=== PATIENT | male | born 1985 | race Caucasian/White ===

== ENCOUNTER → 2021-06-12 | Outpatient (CLI) | payer OTHER ==
--- NOTE | 2021-06-12 15:33 | Diagnostic Imaging Report ---
EXAM: LUMBAR SPINE - 2-3 VIEWS INDICATION: Low back pain. Leg numbness. COMPARISON: None. FINDINGS: Normal alignment. Vertebral body heights preserved. No fractures. Mild scattered degenerative endplate changes. Visualized pelvis is intact. Radiopaque densities overlying the renal shadows consistent with renal stones. IMPRESSION: 1. Mild spondylotic changes in the lumbar spine. No acute radiographic findings. 2. Densities overlying the renal shadows bilaterally consistent with nephrolithiasis. Dictated by: Dictated on workstation # [id number]
== END ==
LOC: RAD 15:00
PROVIDERS: ATTEND Family Medicine
DX: M47.26 Other spondylosis with radiculopathy, lumbar region (principal); N20.0 Calculus of kidney
CPT/HCPCS: 72100

== ENCOUNTER 2022-05-08 06:09 | Emergency (ER) | payer OTHER ==
[~2022-05-08] VITALS: Ht 175.3 cm; Wt 104.3 kg
[2022-05-08] MEDS ORDERED: NS IV 1000 ML 1,000 ML IV STA (06:27)
[2022-05-08] MEDS ORDERED: fentaNYL INJ 100 MCG/2 ML AMP IVP STA (06:27)
[2022-05-08] MEDS ORDERED: KETOROLAC 30 MG/ML VIAL IVP STA (06:27)
[2022-05-08 06:35] LABS: BILIRUBIN,URINE NEGATIVE (NEGATIVE); CLARITY,URINE CLEAR; COLOR,URINE YELLOW; GLUCOSE, URINE (UA) NEGATIVE (NEGATIVE); KETONES,URINE NEGATIVE (NEGATIVE); LEUKOCYTE ESTERASE ,URINE NEGATIVE (NEGATIVE); NITRITE,URINE NEGATIVE (NEGATIVE); PROTEIN,URINE 1+ (NEGATIVE)
--- NOTE | 2022-05-08 06:36 | ED GU-Male ---
General Chief Complaint: Abdominal/GI Problems Stated Complaint: RT SIDE KIDNEY STONE Source: patient Exam Limitations: no limitations History of Present Illness Date Seen by Provider: May 08, 2022 Time Seen by Provider: 06:17 Initial Comments Here with complaint of right flank pain that has been going on since last . He has had some blood in his urine. He passed a small stone yesterday. Does have history of kidney stones and has passed multiple stones in the past. He follows with Dr. Krishnan for primary care and does not have a urologist. Takes lisinopril for high blood pressure but otherwise is not on any medicine. He did take ibuprofen 400 mg at 2 AM this morning for pain. States he has not slept all last night due to the pain. States he has not been able to urinate much since yesterday. Denies fever or chills. Denies nausea or vomiting. Timing/Duration: week, getting worse Severity/Quality: moderate, severe, aching Location: right flank Radiation: none Activities at Onset: none Modifying Factors: Improves With Other (No aggravating or relieving factors) Associated Symptoms: No fever/chills Allergies and Home Medications Allergies Coded Allergies: No Known Drug Allergies (Unverified , 05/08/22) Patient Home Medication List Home Medication List Reviewed: Yes Cephalexin (Cephalexin) 500 Mg Capsule, 500 MG PO BID Prescribed by: MARCELA DORMAN on 05/08/22 0758 Hydrocodone/Acetaminophen (Hydrocodone-Acetamin 5-325 mg) 5 Mg-325 Mg Tablet, 1 TAB PO Q6H PRN for PAIN-MODERATE (5-7) Prescribed by: MARCELA DORMAN on 05/08/22 0759 Tamsulosin HCl (Flomax) 0.4 Mg Cap, 0.4 MG PO DAILY Prescribed by: MARCELA DORMAN on 05/08/22 0758 Review of Systems Review of Systems Constitutional: No chills, No fever EENTM: no symptoms reported Respiratory: No cough, No short of breath Gastrointestinal: No nausea, No vomiting Genitourinary: flank pain, hematuria Musculoskeletal: no symptoms reported Skin: no symptoms reported Past Oowoinn-Pqxjiu-Qgjdur Hx Patient Social History Tobacco Use?: No Use of E-Cig and/or Vaping dev: No Substance use?: No Past Medical History Surgeries: No Respiratory: No Cardiac: Yes Hypertension Genitourinary: Yes Kidney Stones Psychosocial: No Family Medical History Reviewed Nursing Family Hx No Pertinent Family Hx Physical Exam Vital Signs Vital Signs - First Documented 05/08/22 06:19 Temp 37.1 Pulse 71 Resp 20 B/P (MAP) 148/119 (129) Pulse Ox 98 O2 Delivery Room Air Capillary Refill : Height, Weight, BMI Height: '" Weight: lbs. oz. kg; BMI Method: General Appearance: WD/WN, mild distress HEENT: PERRL/EOMI, pharynx normal Neck: full range of motion, supple Cardiovascular: regular rate, rhythm, no murmur Gastrointestinal: non tender, soft Back: normal inspection, no CVA tenderness, no vertebral tenderness Extremities: normal range of motion, non-tender Neurologic/Psychiatric: alert, oriented x 3 Skin: normal color, warm/dry Progress/Results/Core Measures Suspected Sepsis SIRS Temperature: Pulse: Respiratory Rate: Laboratory Tests 05/08/22 06:33: White Blood Count 12.3H Blood Pressure / Mean: Laboratory Tests 05/08/22 06:33: Creatinine 1.44H, Platelet Count 252, Total Bilirubin 0.7 Results/Orders Lab Results Laboratory Tests Test 05/08/22 06:28 05/08/22 06:33 Range/Units Urine Color YELLOW Urine Clarity CLEAR Urine pH 6.0 5-9 Urine Specific [place] >=1.030 1.016-1.022 Urine Protein 1+ H NEGATIVE Urine Glucose (UA) NEGATIVE NEGATIVE Urine Ketones NEGATIVE NEGATIVE Urine Nitrite NEGATIVE NEGATIVE Urine Bilirubin NEGATIVE NEGATIVE Urine Urobilinogen 0.2 < = 1.0 MG/DL Urine Leukocyte Esterase NEGATIVE NEGATIVE Urine RBC (Auto) 3+ H NEGATIVE Urine RBC >100 H /HPF Urine WBC NONE /HPF Urine Squamous Epithelial Cells 0-2 /HPF Urine Crystals PRESENT H /LPF Urine Calcium Oxalate Crystals FEW H /LPF Urine Bacteria NEGATIVE /HPF Urine Casts NONE /LPF Urine Mucus SMALL H /LPF Urine Culture Indicated NO White Blood Count 12.3 H 4.3-11.0 10^3/uL Red Blood Count 5.20 4.30-5.52 10^6/uL Hemoglobin 16.2 13.3-17.7 g/dL Hematocrit 45 40-54 % Mean Corpuscular Volume 86 80-99 fL Mean Corpuscular Hemoglobin 31 25-34 pg Mean Corpuscular Hemoglobin Concent 36 32-36 g/dL Red Cell Distribution Width 12.6 10.0-14.5 % Platelet Count 252 130-400 10^3/uL Mean Platelet Volume 9.7 9.0-12.2 fL Immature Granulocyte % (Auto) 0 % Neutrophils (%) (Auto) 78 H 42-75 % Lymphocytes (%) (Auto) 15 12-44 % Monocytes (%) (Auto) 5 0-12 % Eosinophils (%) (Auto) 1 0-10 % Basophils (%) (Auto) 1 0-10 % Neutrophils # (Auto) 9.6 H 1.8-7.8 10^3/uL Lymphocytes # (Auto) 1.9 1.0-4.0 10^3/uL Monocytes # (Auto) 0.7 0.0-1.0 10^3/uL Eosinophils # (Auto) 0.1 0.0-0.3 10^3/uL Basophils # (Auto) 0.1 0.0-0.1 10^3/uL Immature Granulocyte # (Auto) 0.0 0.0-0.1 10^3/uL Sodium Level 139 135-145 MMOL/L Potassium Level 4.2 3.6-5.0 MMOL/L Chloride Level 109 H 98-107 MMOL/L Carbon Dioxide Level 18 L 21-32 MMOL/L Anion Gap 12 5-14 MMOL/L Blood Urea Nitrogen 20 H 7-18 MG/DL Creatinine 1.44 H 0.60-1.30 MG/DL Estimat Glomerular Filtration Rate 64 BUN/Creatinine Ratio 14 Glucose Level 118 H 70-105 MG/DL Calcium Level 9.7 8.5-10.1 MG/DL Corrected Calcium 8.5-10.1 MG/DL Total Bilirubin 0.7 0.1-1.0 MG/DL Aspartate Amino Transf (AST/SGOT) 24 5-34 U/L Alanine Aminotransferase (ALT/SGPT) 45 0-55 U/L Alkaline Phosphatase 45 40-136 U/L Total Protein 7.9 6.4-8.2 GM/DL Albumin 4.7 H 3.2-4.5 GM/DL My Orders Orders - MARCELA DORMAN MD Fentanyl Inj (Sublimaze Injection) (05/08/22 06:27) Ketorolac Injection (Toradol Injection) (05/08/22 06:27) Cbc With Automated Diff (05/08/22 06:27) Comprehensive Metabolic Panel (05/08/22 06:27) Ua Culture If Indicated (05/08/22 06:27) Ct Abd/Pelvis Wo(Kidney Stone) (05/08/22 06:27) Ed Iv/Invasive Line Start (05/08/22 06:27) Ns Iv 1000 Ml (Sodium Chloride 0.9%) (05/08/22 06:27) Hydromorphone Injection (Dilaudid Inject (05/08/22 07:45) Medications Given in ED Current Medications Medications Dose Ordered Sig/Anna Route Start Time Stop Time Status Last Admin Dose Admin Hydromorphone HCl 0.5 mg ONCE ONCE IV 05/08/22 07:45 05/08/22 07:46 DC 05/08/22 07:43 0.5 MG Vital Signs/I&O 05/08/22 05/08/22 06:19 08:12 Temp 37.1 Pulse 71 Resp 20 B/P (MAP) 148/119 (129) 133/89 Pulse Ox 98 O2 Delivery Room Air Capillary Refill : Progress Note : Progress Note Seen and evaluated. IV, labs including CBC, CMP and UA ordered. We will initiate normal saline 1 L IV as well as fentanyl 50 mcg IV and Toradol 30 mg IV. I have reviewed x-ray results from lumbar x-ray done in 2021 which did show multiple stones in both kidneys. We will go ahead and proceed with CT abdomen and pelvis due to length of time the patient has had pain this time and history of multiple stones. We do want to evaluate for hydronephrosis and pyelonephritis. Monitor patient. Differential diagnosis includes right renal stone, UTI, renal dysfunction including renal failure, hydronephrosis and pyelonephritis 0724: Patient had improvement in pain after medication and CT is now complete. Labs reviewed and show a white count of 12.3 but otherwise normal CBC. Chemistries show essentially normal electrolytes with elevated serum creatinine at 1.44 and BUN of 20. LFTs are normal. UA does show concentration with specific gravity greater than 1.030 with greater than 100 RBCs but nitrite and leukocyte are negative. CT is complete. I do see right ureteral stone on my interpretation. Also has left stone. Is within the kidney and nonobstructing. Pending radiology review. 0740: Radiology report is listed below. Pain has returned. Dilaudid 0.5 mg IV ordered. I did speak at length with the patient regarding current findings and stone. He states he has passed a stone similar size previously and really wants to try to do this on his own without hospi talization or transfer. We did talk about different-urologist in the area as there is none associated with this hospital currently. He is considering Dr. Phan in [place]. We did discuss risk and benefits of trying this at home versus transfer to facility with urology. He verbalized understanding of the risk that this may get worse and may not pass. He does have some slight renal dysfunction I think is associated with dehydration. We have given a liter of fluid and he is able to drink fluids. at bedside and discussion included both he and his . is obviously concerned but will defer to 's decision. 0753: Patient does not want transfer. He still would like to try this outpatient. CT results reviewed and reviewed with patient and family. We again discussed risk and benefit. They will call Dr. Phan's office now for appointment. I will initiate outpatient cephalexin, hydrocodone and tamsulosin. Discharged home with return precautions. Patient and family verbalized understanding of instructions and agreement with plan. I will send a copy of the note to Dr. Krishnan's office in case patient needs referral from primary care. We will also fax a copy of the note and send CT via cloud to [facility]. Diagnostic Imaging Diagonstic Imaging: CT Plain Films/CT/US/NM/MRI: abdomen, pelvis Comments [facility], [place] NAME: JORDAN LINDSEY [facility] REC#: [id number] PT STATUS: REG ER : 1985 PHYSICIAN: MARCELA DORMAN MD ADMIT DATE: 05/08/22/ER Draft Date of Exam:05/08/22 CT ABD/PELVIS WO(KIDNEY STONE) PROCEDURE: CT urinary tract, rule out kidney stone. TECHNIQUE: Multiple contiguous axial images were obtained through the abdomen and pelvis without the use of intravenous contrast. Auto Exposure Controls were utilized during the CT exam to meet ALARA standards for radiation dose reduction. INDICATION: Flank pain. COMPARISON: None FINDINGS: Included portions of the lung bases are clear. CT ABDOMEN: There is moderate right-sided hydronephrosis. This is felt to be related to a 8 mm calculus at the right UPJ (image 72, series 2). Additional bilateral nonobstructive renal calculi are also identified. There is no ureteral calculus on the left. Additionally, there is no hydroureteronephrosis nor evidence of obstruction on the left. Hypodense renal cysts are noted. The adrenal glands, spleen, pancreas, and liver have an unremarkable noncontrast CT appearance. Small bowel loops are nondistended. Normal appendix is identified. There is no loculated fluid collection, free fluid or free air. No abnormal adenopathy is seen. Osseous structures show no acute abnormalities. CT PELVIS: Urinary bladder is unopacified and nondistended. No calculi are seen within urinary bladder. There is no loculated fluid collection, free fluid or free air. No abnormal lymph nodes are seen. Osseous structures show no acute abnormalities. IMPRESSION: 1. Moderate right-sided hydroureteronephrosis secondary to calculus at the right UPJ. 2. Additional punctate nonobstructive bilateral renal calculi. Dictated on workstation # [id number] Dict: 05/08/22 0708 Trans: 05/08/22 0714 [id number] Interpreted by: JACKIE MADRIGAL MD Electronically signed by: Departure Impression Primary Impression: Right ureteral stone Additional Impression: Hydronephrosis, right Disposition: 01 HOME, SELF-CARE Condition: Stable Departure-Patient Inst. Decision time for Depature: 07:55 Referrals: NO,LOCAL PHYSICIAN (PCP) Primary Care Physician Patient Instructions: Kidney Stones in Adults, Hydronephrosis, Adult (DC) Add. Discharge Instructions: All discharge instructions reviewed with patient and/or family. Voiced understanding. Call Dr. Phan's office today for appointment. You do have an 8 mm kidney stone at the ureteropelvic junction that is causing some back pressure of fluid into the kidney (hydronephrosis). While you have passed a stone of this size previously, this stone may not moving it is very important that you follow-up with the urologist as you may need additional procedures to assist with passing the stone. Take medications as directed. If you are not taking the prescribed pain medicine, you may take Tylenol/acetaminophen 1000 mg every 6-8 hours as needed for pain. Additionally, you may take [id number] ibuprofen 600 mg every 8 hours as needed for pain. It is very important that you drink plenty of fluids. Return for worse pain, fever, vomiting, weakness, breathing problems or other concerns as needed. Scripts Tamsulosin HCl (Flomax) 0.4 Mg Cap 0.4 MG PO DAILY for 14 Days, #14 CAP 0 Refills Prov: MARCELA DORMAN MD 05/08/22 Hydrocodone/Acetaminophen (Hydrocodone-Acetamin 5-325 mg) 5 Mg-325 Mg Tablet 1 TAB PO Q6H PRN for PAIN-MODERATE (5-7) for 7 Days, #12 TAB 0 Refills Prov: MARCELA DORMAN MD 05/08/22 Cephalexin (Cephalexin) 500 Mg Capsule 500 MG PO BID for 7 Days, #14 CAP 0 Refills Prov: MARCELA DORMAN MD 05/08/22 Copy Copies To 1: KRISTIN KRISHNAN MD, TIMOTHY D MD May 08, 2022 06:36
[2022-05-08 06:39] LABS: BASOPHILS # (AUTO) 0.1 10^3/uL (0.0-0.1); BASOPHILS % (AUTO) 1 % (0-10); EOSINOPHILS # (AUTO) 0.1 10^3/uL (0.0-0.3); EOSINOPHILS % (AUTO) 1 % (0-10); HEMATOCRIT 45 % (40-54); HEMOGLOBIN 16.2 g/dL (13.3-17.7); LYMPHOCYTES # (AUTO) 1.9 10^3/uL (1.0-4.0); LYMPHOCYTES % (AUTO) 15 % (12-44); MEAN CORPUSCULAR HEMOGLOBIN 31 pg (25-34); MEAN CORPUSCULAR HGB CONC 36 g/dL (32-36); MEAN CORPUSCULAR VOLUME 86 fL (80-99); MEAN PLATELET VOLUME 9.7 fL (9.0-12.2); MONOCYTES # (AUTO) 0.7 10^3/uL (0.0-1.0); MONOCYTES % (AUTO) 5 % (0-12); NEUTROPHILS # (AUTO) 9.6 10^3/uL (1.8-7.8); NEUTROPHILS % (AUTO) 78 % (42-75); PLATELET COUNT 252 10^3/uL (130-400); WHITE BLOOD COUNT 12.3 10^3/uL (4.3-11.0)
[2022-05-08 06:50] LABS: ALBUMIN 4.7 GM/DL (3.2-4.5); CHLORIDE 109 MMOL/L (98-107); POTASSIUM 4.2 MMOL/L (3.6-5.0); SODIUM 139 MMOL/L (135-145)
[2022-05-08 06:50] LABS: BACTERIA,URINE NEGATIVE /HPF; RBC,URINE >100 /HPF
[2022-05-08 06:51] LABS: CALCIUM OXALATE CRYSTALS,UR FEW /LPF; SQUAMOUS EPITHELIAL CELL,UR 0-2 /HPF
[2022-05-08 06:51] LABS: CALCIUM 9.7 MG/DL (8.5-10.1)
[2022-05-08 06:52] LABS: GLUCOSE 118 MG/DL (70-105)
[2022-05-08 06:53] LABS: TOTAL PROTEIN 7.9 GM/DL (6.4-8.2)
[2022-05-08 06:54] LABS: BILIRUBIN,TOTAL 0.7 MG/DL (0.1-1.0); CARBON DIOXIDE 18 MMOL/L (21-32)
[2022-05-08 06:56] LABS: ALKALINE PHOSPHATASE 45 U/L (40-136); CREATININE SERUM 1.44 MG/DL (0.60-1.30); GFR ESTIMATED 64
[2022-05-08 06:57] LABS: BUN/CREATININE RATIO 14
[2022-05-08 06:59] LABS: ALANINE AMINOTRANSFERASE 45 U/L (0-55)
--- NOTE | 2022-05-08 07:15 | Diagnostic Imaging Report ---
PROCEDURE: CT urinary tract, rule out kidney stone. TECHNIQUE: Multiple contiguous axial images were obtained through the abdomen and pelvis without the use of intravenous contrast. Auto Exposure Controls were utilized during the CT exam to meet ALARA standards for radiation dose reduction. INDICATION: Flank pain. COMPARISON: None FINDINGS: Included portions of the lung bases are clear. CT ABDOMEN: There is moderate right-sided hydronephrosis. This is felt to be related to a 8 mm calculus at the right UPJ (image 72, series 2). Additional bilateral nonobstructive renal calculi are also identified. There is no ureteral calculus on the left. Additionally, there is no hydroureteronephrosis nor evidence of obstruction on the left. Hypodense renal cysts are noted. The adrenal glands, spleen, pancreas, and liver have an unremarkable noncontrast CT appearance. Small bowel loops are nondistended. Normal appendix is identified. There is no loculated fluid collection, free fluid or free air. No abnormal adenopathy is seen. Osseous structures show no acute abnormalities. CT PELVIS: Urinary bladder is unopacified and nondistended. No calculi are seen within urinary bladder. There is no loculated fluid collection, free fluid or free air. No abnormal lymph nodes are seen. Osseous structures show no acute abnormalities. IMPRESSION: 1. Moderate right-sided hydroureteronephrosis secondary to calculus at the right UPJ. 2. Additional punctate nonobstructive bilateral renal calculi. Dictated by: Dictated on workstation # [id number]
[2022-05-08] MEDS ORDERED: HYDROmorphone 2 MG/ML VIAL (DILAUDID) IV ONE (07:45)
[2022-05-08] MEDS ORDERED: CEPH500C PO (07:58)
[2022-05-08] MEDS ORDERED: TMSL.4C PO (07:58)
[2022-05-08] MEDS ORDERED: ACHD5005 PO (07:58)
[2022-05-08 08:12] VITALS: BP 133/89
== END 2022-05-08 08:12 | disposition home or self-care (01) ==
LOC: EDUNIT# 06:09 → ER 06:12
DX: N13.2 Hydronephrosis with renal and ureteral calculous obstruction (principal); I10 Essential (primary) hypertension; Z79.899 Other long term (current) drug therapy
CPT/HCPCS: 36415; 74176; 80053; 81000; 85025